=== PATIENT | male | born 1955 ===

== ENCOUNTER → 2017-07-25 | Day surgery (SDC) | payer OTHER ==
[~2017-07-25] VITALS: Ht 181.6 cm; Wt 83.0 kg
[~2017-07-25] MED LIST: LIDOCAINE/SOD BICARB 8.4% SYR ID ONE; MIDAZOLAM 2 MG/2 ML VIAL IVP PRN; NORMOSOL R SOLN(*) 1000 ML BAG 1,000 ML IV PRN; PRAV20TA65 PO
[2017-07-25 07:12] VITALS: BP 143/76
[2017-07-25 08:25] VITALS: BP 99/60
[2017-07-25 08:45] VITALS: BP 125/76
[2017-07-25 09:00] VITALS: BP 128/76
[2017-07-25 09:11] VITALS: BP 131/81
[2017-07-25 09:13] VITALS: BP 124/75
== END ==
LOC: OR 00:30
PROVIDERS: ATTEND Family Medicine
DX: Z12.11 Encounter for screening for malignant neoplasm of colon (principal)